=== PATIENT | female | born 1970 | race Caucasian/White ===

== ENCOUNTER → 2021-02-16 | Outpatient (CLI) | payer OTHER ==
[~2021-02-16] MED LIST: BUPR150T15 PO; DEXL30CA PO; GADOTERATE 7.5 MMOL/15ML VIAL. IVP ONE; LORA2DIS2 IJ; PHEN15CA2 PO; PROG100C10 PO; TEST5GEL TD
--- NOTE | 2021-02-16 13:22 | KCIC ---
Examination: Abdominal MRI with MRCP. INDICATION: Dilated common bile duct on ultrasound. Patient is a 50-year-old woman with bloating afte r eating and nausea after eating. COMPARISON: Abdominal ultrasound of 02/09/2021 TECHNIQUE: Multiplanar multisequence MR imaging of the abdomen was performed with and without IV cont rast utilizing 15 mL of Clariscan for the postcontrast sequences. FINDINGS: No restricted diffusion. Liver shows multiple cysts, largest representing a pair of 2 cm cysts in hep atic segment 7 abutting the IVC. No solid liver masses and no abnormal enhancement. No signal loss on opposed phase imaging. Smooth hepatic contour. Gallbladder is unremarkable. There is no intrahepatic biliary dilation. The common bile duct is dilat ed at the amy hepatis to 7.6 mm and shows a sharp turn at the pancreatic head with no evidence of c holedocholithiasis. No abnormal enhancement. No evidence of a stricture. This confirmed on the MRCP i mages. The pancreas is unremarkable. No mass, ductal dilation or parenchymal atrophy is identified. Spleen, adrenal glands and kidneys are normal. No acute bowel pathology is shown. The included lung bases are unremarkable. Incidental bilateral breast implants are noted. Musculoskeletal structures reveal no additional unexpected findings. IMPRESSION: Mild extrahepatic biliary dilation to 7.6 mm with no evidence of choledocholithiasis, obstructing mas s or peribiliary inflammatory changes. Electronically signed by: Delvin Moore MD (02/16/2021 1:19 PM) [id number]
== END ==
LOC: KCIC MRI 07:58
PROVIDERS: ATTEND Nurse Practitioner
DX: K76.89 Other specified diseases of liver (principal); K83.8 Other specified diseases of biliary tract
CPT/HCPCS: 74183; A9575